=== PATIENT | female | born 1975 | race Caucasian/White ===

== ENCOUNTER 2018-05-14 09:49 | Emergency (ER) | payer BC ==
[2018-05-14 11:15] VITALS: BP 132/72
--- NOTE | 2018-05-14 11:29 | UC ---
Ear Complaint HPI - HPI Summary HPI Summary: right ear pain x 2 days pain is sever, 7 out of 10 , pain radiates to her right jaw increase pain with chewing, better with rest, no cold symptoms , no dental pain , no hearing loss no fever, no chills hx of TMJ - History of Current Complaint Chief Complaint: UCEar Stated Complaint: EARS,SORE THROAT Time Seen by Provider: 05/14/18 11:15 Hx Obtained From: Patient Hx Last Menstrual Period: 05/09/18 ?: No Onset/Duration: Gradual Onset, Lasting Days - 2, Still Present Severity Initially: Moderate Severity Currently: Severe Pain Intensity: 6 Aggravating Factors: Other - chewing Alleviating Factors: Other (Noted In Comments) - rest, Related History: Other (Noted In Comments) - hx of TMJ - Allergies/Home Medications Allergies/Adverse Reactions: Allergies Allergy/AdvReac Type Severity Reaction Status Date / Time Penicillins Allergy Rash Verified 05/14/18 11:12 PMH/Surg Hx/FS Hx/Imm Hx - Additional Past Medical History Additional PMH: TMJ Psychological History: Anxiety - Surgical History Surgical History: Yes Surgery Procedure, Year, and Place: , 2004 2006 2011, [place]. breast reduction 2016 - Family History Known Family History: Negative: Diabetes - Social History Alcohol Use: Rare Substance Use Type: None Smoking Status (MU): Never Smoked Tobacco - Immunization History Most Recent Influenza Vaccination: no Review of Systems Constitutional: Negative Skin: Negative Eyes: Negative ENT: Negative Respiratory: Negative Is Patient Immunocompromised?: No All Other Systems Reviewed And Are Negative: Yes Physical Exam Triage Information Reviewed: Yes Appearance: Well-Appearing, No Pain Distress, Well-Nourished Vital Signs: Initial Vital Signs Temp 98 F 05/14/18 11:08 Pulse 80 05/14/18 11:08 Resp 14 05/14/18 11:08 BP 132/72 05/14/18 11:08 Pulse Ox 100 05/14/18 11:08 Vital Signs Reviewed: Yes Eye Exam: Normal Eyes: Positive: Conjunctiva Clear ENT: Positive: Normal ENT inspection, Hearing grossly normal, Pharynx normal, TMs normal, Other - tenderness right TMJ , very limited ROM of the Jaw. Negative: Pharyngeal erythema, Nasal congestion, Nasal drainage, TM bulging, TM dull, TM red, Tonsillar swelling, Tonsillar exudate Respiratory: Positive: Chest non-tender, Lungs clear, Normal breath sounds Cardiovascular: Positive: RRR, No Murmur, Pulses Normal Skin Exam: Normal Ear Complaint Course/Dx - Differential Dx/Diagnosis Provider Diagnoses: right TMJ Discharge - Sign-Out/Discharge Documenting (check all that apply): Patient Departure All imaging exams completed and their final reports reviewed: No Studies - Discharge Plan Condition: Stable Disposition: HOME Prescriptions: Fluticasone NASAL SPRAY 50MCG* [Flonase NASAL SPRAY 50MCG*] 2 spray BOTH NARES DAILY #1 btl Naproxen [Naproxen 500 mg tab] 500 mg PO BID #20 tablet Patient Education Materials: Temporomandibular Disorder (ED), Earache (ED) Referrals: No Primary Care Phys,NOPCP [Primary Care Provider] - 7 Days - Billing Disposition and Condition Condition: STABLE Disposition: Home
== END 2018-05-14 11:29 | disposition home or self-care (01) ==
LOC: UCCORT 09:49
DX: M26.601 Right temporomandibular joint disorder, unspecified (principal); Z88.0 Allergy status to penicillin
CPT/HCPCS: 99212; G0463